=== PATIENT | male | born 1990 | race Caucasian/White ===

== ENCOUNTER 2017-10-31 12:34 | Emergency (ER) | payer MEDICAID, OTHER ==
[~2017-10-31] VITALS: Ht 170.2 cm; Wt 176.9 kg
[~2017-10-31 12:34] MED LIST: ALBU-136 IH; ALBU3SOL28 IH; APIX5TAB PO; CEPH500C16 PO; CLIN300C2 PO; MEDR150S20 IH; TRAM50TA3 PO
[2017-10-31 13:02] VITALS: BP 139/79
--- NOTE | 2017-10-31 13:59 | NUR ---
PT TO ER BED 1
--- NOTE | 2017-10-31 14:00 | NUR ---
27/M BIB SELF C/O RUQ ABD PAIN X 2DAYS. HX : ASTHMA. DENIES N/V/D; SKIN IS PINK/WARM/DRY; AAOX4 WITH EVEN AND STEADY GAIT; LUNGS CLEAR BL;PATIENT STATES PAIN OF 8/10 AT THIS TIME; PATIENT POSITIONED FOR COMFORT; HOB ELEVATED; BEDRAILS UP X2; BED DOWN. ER MD MADE AWARE OF PT STATUS.
--- NOTE | 2017-10-31 15:43 | NUR ---
AT 1430 PATIENT ELOPED FROM FACILITY NO FURTHER CARE RENDERED
[2017-10-31 15:56] VITALS: BP 142/76
== END 2017-10-31 14:30 | disposition left against medical advice (07) ==
LOC: MED 12:34
DX: R10.9 Unspecified abdominal pain (principal); R05 Cough; R11.0 Nausea; R03.0 Elevated blood-pressure reading, without diagnosis of hypertension; J45.909 Unspecified asthma, uncomplicated; K21.9 Gastro-esophageal reflux disease without esophagitis; Z79.899 Other long term (current) drug therapy; E66.01 Morbid (severe) obesity due to excess calories
CPT/HCPCS: 99281

== ENCOUNTER 2017-12-09 00:03 | Emergency (ER) | payer MEDICAID, OTHER ==
[~2017-12-09] VITALS: Ht 175.3 cm; Wt 172.4 kg
[2017-12-09 00:04] VITALS: BP 122/66
--- NOTE | 2017-12-09 00:10 | NUR ---
PT AMBULATED TO BED 1
[2017-12-09] MEDS ORDERED: ALBUTEROL SULFATE/IPRATROPIU 3 ML SOL IH ONE ×2 (00:15→00:35)
[2017-12-09] MEDS ORDERED: methylPREDNISolone SS 125 MG in WATER STERILE 2 ML IM ONE (00:15)
--- NOTE | 2017-12-09 00:16 | NUR ---
Respiratory Therapist at bedside for respiratory intervention.
--- NOTE | 2017-12-09 00:20 | NUR ---
PT C/O SOB PT STATES HE RAN OUT OF HIS MEDICATION FOR ASHTMA AND SOB STARTED TODAY AT RES. BL BREATH SOUNDS INSPIRATORY WHEEZES THROUGHOUT, RR EVEN, SHALLOW, LABORED. HX ASHTMA NKA
--- NOTE | 2017-12-09 01:00 | NUR ---
RR EVEN, UNLABORED, WHEEZES ARE DIMINSHED AFTER TX. PT STATES HE FEELS BETTER.
[2017-12-09 01:25] VITALS: BP 113/60
--- NOTE | 2017-12-09 01:25 | NUR ---
Patient discharged with v/s stable. Written and verbal after care instructions given and explained. Patient alert, oriented and verbalized understanding of instructions. Ambulatory with steady gait. All questions addressed prior to discharge. ID band removed. Patient advised to follow up with PMD. Rx of Albuterol and Prednisone given. Patient educated on indication of medication including possible reaction and side effects. Opportunity to ask questions provided and answered.
== END 2017-12-09 01:25 | disposition home or self-care (01) ==
LOC: MED 00:03
DX: J45.901 Unspecified asthma with (acute) exacerbation (principal); R03.0 Elevated blood-pressure reading, without diagnosis of hypertension; K21.9 Gastro-esophageal reflux disease without esophagitis; Z79.899 Other long term (current) drug therapy
CPT/HCPCS: 94640; 96372; 99283; J2930; J7620

== ENCOUNTER 2019-06-18 08:57 | Emergency (ER) | payer OTHER ==
[~2019-06-18] VITALS: Ht 172.7 cm; Wt 172.4 kg
--- NOTE | 2019-06-18 09:01 | NUR ---
PT TO ER BED 6
[2019-06-18 09:03] VITALS: BP 127/93
--- NOTE | 2019-06-18 09:03 | NUR ---
C/O SOB TODAY, HX OF ASTHMA, TX OF ALBUTEROL, PT STATED RUN OF MEDICATION FOR SEVERAL DAYS. DIFFICULTY BREATHING AND WHEEZING LUNG SOUNDS NOTED . DENIES N/V/D; SKIN IS PINK/WARM/DRY; AAOX4 WITH EVEN AND STEADY GAIT; LUNGS CLEAR BL; HR EVEN AND REGULAR; PT DENIES ANY FEVER, CP, OR COUGH AT THIS TIME; PATIENT STATES PAIN OF 0/10 AT THIS TIME; VSS; PATIENT POSITIONED FOR COMFORT; HOB ELEVATED; BEDRAILS UP X2; BED DOWN. ER MD MADE AWARE OF PT STATUS.
[2019-06-18] MEDS ORDERED: DEXAMETHASONE 10 MG/ML VIAL IVP ONE (09:10)
[2019-06-18] MEDS ORDERED: ALBUTEROL SULFATE/IPRATROPIU 3 ML SOL IH ONE ×2 (09:10→10:30)
--- NOTE | 2019-06-18 09:34 | NUR ---
SINCE PT DOES NOT HAVE A LINE YET, SO DR. FONTENOT GAVE VERBAL ORDER TO CHANGE THE ROUTE OF DECADRON FROM IVP TO IM. CARRIED OUT.
--- NOTE | 2019-06-18 09:57 | NUR ---
timber management technician at bedside.
[2019-06-18 10:17] LABS: BASOPHILS # (AUTO) 0.1 K/uL (0.00-0.22); BASOPHILS % (AUTO) 0.8 % (0.0-2.0); EOSINOPHILS # (AUTO) 0.3 K/uL (0-0.4); EOSINOPHILS % (AUTO) 3.6 % (0.0-4.0); HEMATOCRIT 39.8 % (36-52); HEMOGLOBIN 12.9 g/dL (12.0-18.0); LYMPHOCYTES # (AUTO) 1.6 K/uL (2.0-11.5); LYMPHOCYTES % (AUTO) 22.7 % (20.5-51.1); MEAN CORPUSCULAR HEMOGLOBIN 26 pg (27-31); MEAN CORPUSCULAR HGB CONC 33 g/dL (33-37); MEAN CORPUSCULAR VOLUME 79.5 fL (80-94); MONOCYTES # (AUTO) 0.5 K/uL (0.8-1.0); MONOCYTES % (AUTO) 7.1 % (1.7-9.3); NEUTROPHILS # (AUTO) 4.7 K/uL (1.8-7.7); NEUTROPHILS % (AUTO) 65.8 % (42.2-75.2); PLATELET COUNT (AUTO) 231 K/uL (140-450); RED BLOOD CELL COUNT(AUTO) 5.01 MIL/uL (4.20-6.10); RED CELL DISTRIBUTION WIDTH 15.1 % (11.6-13.7); WHITE BLOOD COUNT (AUTO) 7.1 K/uL (4.8-10.8)
[2019-06-18 10:30] LABS: ALBUMIN 3.5 g/dL (3.4-5.0); CARBON DIOXIDE 30.2 mmol/L (21-32); CREATININE 0.9 mg/dL (0.7-1.3); POTASSIUM 4.2 mmol/L (3.5-5.1); TOTAL BILIRUBIN 0.2 mg/dL (0.0-1.0)
--- NOTE | 2019-06-18 10:39 | NUR ---
Secondary breathing treatment administered at bedside by respiratory therapist.
[2019-06-18 11:40] VITALS: BP 138/88
--- NOTE | 2019-06-18 11:40 | NUR ---
Patient discharged with v/s stable. Written and verbal after care instructions given and explained. Patient alert, oriented and verbalized understanding of instructions. Ambulatory with steady gait. All questions addressed prior to discharge. ID band removed. Patient advised to follow up with PMD. Rx of PREDNISONE 50MG, PROAIR 90MCG, QVAR 80MCG, ALBUTEROL SULFATE given. Patient educated on indication of medication including possible reaction and side effects. Opportunity to ask questions provided and answered.
== END 2019-06-18 11:40 | disposition home or self-care (01) ==
LOC: MED 08:57
DX: J45.901 Unspecified asthma with (acute) exacerbation (principal); K21.9 Gastro-esophageal reflux disease without esophagitis; Z79.899 Other long term (current) drug therapy
CPT/HCPCS: 36415; 71045; 80053; 85025; 94640; 96372; 99284; J1100; J7620; Q0092

== ENCOUNTER 2019-12-18 14:37 | Emergency (ER) | payer OTHER ==
--- NOTE | 2019-12-18 15:15 | NUR ---
PER FRONT LOBBY, PT LWBS.
== END 2019-12-18 15:15 | disposition left against medical advice (07) ==
LOC: MED 14:37
DX: Z53.21 Procedure and treatment not carried out due to patient leaving prior to being seen by health care provider (principal)

== ENCOUNTER 2020-01-05 20:58 | Emergency (ER) | payer OTHER ==
[~2020-01-05] VITALS: Ht 172.7 cm; Wt 181.4 kg
[2020-01-05 21:10] VITALS: BP 108/90
--- NOTE | 2020-01-05 21:13 | NUR ---
TO LOBBYB A/W BED AMBULATORY
--- NOTE | 2020-01-05 21:35 | NUR ---
PT AMBULATED TO BED 03.
[2020-01-05] MEDS ORDERED: methylPREDNISolone SS 125 MG/2 ML VIAL IVP ONE (21:40)
[2020-01-05] MEDS ORDERED: ALBUTEROL SULFATE/IPRATROPIU 3 ML SOL IH ONE (21:40)
--- NOTE | 2020-01-05 21:45 | NUR ---
29 Y/O MALE PRESENTS TO ED WITH COMPLAINTS OF SOB. PATIENT HAS BEEN SOB FOR A WEEK NOW. REPORTS RAN OUT OF MEDICATIONS-NEBULIZER/ALBUTEROL. DUE TO RECENT CHANGES IN WEATHER (WINDY) PATIENT HAS BEEN USING ASTHMA MEDS MORE FREQUENTLY. NKA. REPORTS HAVING SMALL COUGH TODAY, NONPRODUCTIVE. DENIES FEVER,N/V/D/C. REPORTS NOT RECEIVING FLU VACCINE THIS SEASON. SIDERAILS UPx3. RESPIRATORY THERAPIST AT BEDSIDE FOR BREATHING TREATMENT. LUNG SOUNDS ARE DIMINSHED AT BASES, PATIENT ABLE TO MAKE FULL SENTENCES BUT REPORTS HAVING MILD CHEST PAIN DUE TO SOB. WILL CONTINUE TO MONITOR.
[2020-01-05 22:48] LABS: BASOPHILS # (AUTO) 0.1 K/uL (0.00-0.22); BASOPHILS % (AUTO) 0.7 % (0.0-2.0); EOSINOPHILS # (AUTO) 0.3 K/uL (0-0.4); HEMOGLOBIN 14.5 g/dL (12.0-18.0); LYMPHOCYTES # (AUTO) 2.9 K/uL (2.0-11.5); LYMPHOCYTES % (AUTO) 30.2 % (20.5-51.1); MEAN CORPUSCULAR HEMOGLOBIN 26 pg (27-31); MEAN CORPUSCULAR HGB CONC 32 g/dL (33-37); MEAN CORPUSCULAR VOLUME 81.1 fL (80-94); MONOCYTES # (AUTO) 0.7 K/uL (0.8-1.0); MONOCYTES % (AUTO) 7.4 % (1.7-9.3); NEUTROPHILS # (AUTO) 5.6 K/uL (1.8-7.7); NEUTROPHILS % (AUTO) 58.7 % (42.2-75.2); PLATELET COUNT (AUTO) 279 K/uL (140-450); RED BLOOD CELL COUNT(AUTO) 5.55 MIL/uL (4.20-6.10); RED CELL DISTRIBUTION WIDTH 15.1 % (11.6-13.7); WHITE BLOOD COUNT (AUTO) 9.6 K/uL (4.8-10.8)
--- NOTE | 2020-01-05 23:10 | NUR ---
PATIENT RESTING WELL, NO COMPLAINTS AT THIS TIME. REPORTS BREATHING HAS IMPROVED. LUNG SOUNDS SLIGHTLY RHONCHI. BREATHING IS UNLABORED. SIDERAILS UPx2.
[2020-01-05 23:13] LABS: ALBUMIN 4.1 g/dL (3.4-5.0); ANION GAP 13.7 (8-16); CARBON DIOXIDE 25.9 mmol/L (21-32); CREATININE 0.9 mg/dL (0.6-1.3); POTASSIUM 3.6 mmol/L (3.5-5.1); TOTAL BILIRUBIN 0.2 mg/dL (0.0-1.0)
[2020-01-05 23:20] VITALS: BP 149/85
--- NOTE | 2020-01-06 01:06 | NUR ---
Patient discharged with v/s stable. Written and verbal after care instructions given and explained. Patient alert, oriented and verbalized understanding of instructions. Ambulatory with steady gait. All questions addressed prior to discharge. ID band removed.PERIPHERAL IV REMOVED. Patient advised to follow up with PMD. Rx of PREDNISONE, ALBUTEROL, AND DUONEB given. Patient educated on indication of medication including possible reaction and side effects. Opportunity to ask questions provided and answered.
== END 2020-01-06 01:06 | disposition home or self-care (01) ==
LOC: MED 20:58
DX: J45.901 Unspecified asthma with (acute) exacerbation (principal); K21.9 Gastro-esophageal reflux disease without esophagitis; Z98.890 Other specified postprocedural states; Z79.899 Other long term (current) drug therapy
CPT/HCPCS: 36415; 71045; 80053; 83880; 84484; 85025; 87804; 93005; 94640; 96374; 99285; J2930; J7620; Q0092

== ENCOUNTER 2020-11-05 07:24 | Emergency (ER) | payer OTHER, SELFPAY ==
[~2020-11-05] VITALS: Ht 177.8 cm; Wt 172.4 kg
[2020-11-05 07:30] VITALS: BP 105/39
[2020-11-05] MEDS ORDERED: ALBUTEROL SULFATE/IPRATROPIU 3 ML SOL IH ONE (07:40)
[2020-11-05] MEDS ORDERED: predniSONE 20 MG TAB PO ONE (07:40)
[2020-11-05] MEDS ORDERED: ALBUTEROL 0.083% 2.5 MG/3 ML NEBU INH ONE (07:40)
--- NOTE | 2020-11-05 07:47 | NUR ---
30/M BIB SELF C/O SOB X TODAY. NEED OF NEBULIZER ( ALBUTEROL), PER PT HE RAN OUT OF NEBULIZER, LAST USED LAST NIGHT , HX OF ASTHMA
--- NOTE | 2020-11-05 08:31 | NUR ---
Patient states he is feeling better, denies SOB at this time. VSS
--- NOTE | 2020-11-05 08:32 | NUR ---
Patient discharged with v/s stable. Written and verbal after care instructions given and explained. Patient alert, oriented and verbalized understanding of instructions. Ambulatory with steady gait. All questions addressed prior to discharge. ID band removed. Patient advised to follow up with PMD. Rx of Albuterol and Prednisone 20mg given. Patient educated on indication of medication including possible reaction and side effects. Opportunity to ask questions provided and answered.
[2020-11-05 08:33] VITALS: BP 105/39
== END 2020-11-05 08:32 | disposition home or self-care (01) ==
LOC: MED 07:24
DX: J45.901 Unspecified asthma with (acute) exacerbation (principal); K21.9 Gastro-esophageal reflux disease without esophagitis; F12.90 Cannabis use, unspecified, uncomplicated; Z98.890 Other specified postprocedural states; Z79.899 Other long term (current) drug therapy
CPT/HCPCS: 94640; 99283; J7512; J7613

== ENCOUNTER 2021-02-26 03:56 | Emergency (ER) | payer OTHER, SELFPAY ==
[~2021-02-26] VITALS: Ht 175.3 cm; Wt 172.4 kg
[2021-02-26 04:02] VITALS: BP 164/102
--- NOTE | 2021-02-26 04:02 | NUR ---
TO B ED AMBULATORY
--- NOTE | 2021-02-26 04:23 | NUR ---
MD PARKER EVALUATING PT.
[2021-02-26] MEDS ORDERED: RISP2TAB52 PO (04:30)
[2021-02-26] MEDS ORDERED: ATA25 PO (04:30)
--- NOTE | 2021-02-26 04:31 | NUR ---
SEE COMPLETE ASSESSMENT. VSS.
--- NOTE | 2021-02-26 04:32 | NUR ---
ASSESSING AND EVALUATING PT. NO NURSING INTERVENTIONS NEEDED AT THIS TIME.
[2021-02-26 04:42] VITALS: BP 133/66
--- NOTE | 2021-02-26 04:43 | NUR ---
Patient discharged with v/s stable. Written and verbal after care instructions given and explained. Patient alert, oriented and verbalized understanding of instructions. Ambulatory with steady gait. All questions addressed prior to discharge. ID band removed. Patient advised to follow up with PMD. Rx of ATARAX, AND RISPERIDONE given. Patient educated on indication of medication including possible reaction and side effects. Opportunity to ask questions provided and answered.
== END 2021-02-26 04:43 | disposition home or self-care (01) ==
LOC: MED 03:56
DX: F41.9 Anxiety disorder, unspecified (principal); G47.00 Insomnia, unspecified; J45.909 Unspecified asthma, uncomplicated; K21.9 Gastro-esophageal reflux disease without esophagitis; F12.10 Cannabis abuse, uncomplicated; Z79.899 Other long term (current) drug therapy
CPT/HCPCS: 99283

== ENCOUNTER 2021-03-13 08:08 | Emergency (ER) | payer OTHER, SELFPAY ==
[~2021-03-13] VITALS: Ht 172.7 cm; Wt 177.8 kg
[~2021-03-13 08:08] MED LIST changes: +ALBU-118 IH; -ALBU-136 IH; +ATA25 PO; +RISP2TAB52 PO
[2021-03-13 08:18] VITALS: BP 148/73
[2021-03-13] MEDS ORDERED: ALBUTEROL 0.083% 2.5 MG/3 ML NEBU INH ONE (08:20)
[2021-03-13] MEDS ORDERED: methylPREDNISolone SS 125 MG/2 ML VIAL IVP ONE (08:20)
[2021-03-13] MEDS ORDERED: MAG SULF 2000 MG/WATER PREMIX 50 ML IV ONE (08:20)
[2021-03-13] MEDS ORDERED: IPRATROPIUM 0.02% 0.5 MG/2.5 ML NEBU INH ONE (08:20)
[2021-03-13] MEDS ORDERED: predniSONE 20 MG TAB PO ONE (08:40)
== END 2021-03-13 09:13 | disposition left against medical advice (07) ==
LOC: MED 08:08
DX: J45.901 Unspecified asthma with (acute) exacerbation (principal); R03.0 Elevated blood-pressure reading, without diagnosis of hypertension; F12.90 Cannabis use, unspecified, uncomplicated; K21.9 Gastro-esophageal reflux disease without esophagitis; Z98.890 Other specified postprocedural states; Z79.899 Other long term (current) drug therapy
CPT/HCPCS: 71045; 94640; 99283; J2930; J7512; J7613; J7644; J3475